=== PATIENT | female | born 1965 | race Caucasian/White ===

== ENCOUNTER 2021-01-09 17:58 | Emergency (ER) | payer MEDICAID ==
[~2021-01-09] VITALS: Ht 170.2 cm; Wt 88.5 kg
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
--- NOTE | 2021-01-09 19:33 | NUR ---
Patient discharged to home in stable condition. Written and verbal after care instructions given. Patient verbalizes understanding of instruction.
[2021-01-09 19:34] VITALS: BP 126/72
== END 2021-01-09 19:34 | disposition home or self-care (01) ==
LOC: ER 18:05
DX: S80.01XA Contusion of right knee, initial encounter (principal); S80.02XA Contusion of left knee, initial encounter; S70.02XA Contusion of left hip, initial encounter; E11.9 Type 2 diabetes mellitus without complications; Z98.890 Other specified postprocedural states; Z60.2 Problems related to living alone; V49.59XA Passenger injured in collision with other motor vehicles in traffic accident, initial encounter; Y93.89 Activity, other specified; Y92.413 State road as the place of occurrence of the external cause; Y99.8 Other external cause status
CPT/HCPCS: 72170-TC; 73564-TC